=== PATIENT | female | born 1945 | race Caucasian/White ===

== ENCOUNTER 2016-10-18 15:23 | Emergency (ER) | payer MEDICARE, OTHER ==
[2016-10-18 15:42] VITALS: BMI 26.6
[2016-10-18 15:42] LABS: AUTOMATED BASOPHIL 1.2 % (0-2); AUTOMATED EOSINOPHIL 1.7 % (0-5); AUTOMATED LYMPH 21.3 % (17-44); AUTOMATED MONOCYTE 6.2 % (3-10); AUTOMATED NEUTROPHIL 69.6 % (45-76); MPV 7.4 fL (7.4-10.4)
--- NOTE | 2016-10-18 15:51 | EDPRACDOC ---
ED Hypoglycemia - General Information Chief Complaint: Generalized Weakness Information Source: Patient Mode of Arrival:: Ambulance Home Medications: Home Medications Aspirin [Aspirin EC] 81 mg PO DAILY 09/01/13 Atorvastatin Calcium [Lipitor] 40 mg PO DAILY 09/01/13 Lisinopril [Prinivil] 5 mg PO DAILY 09/01/13 Alendronate Sodium [Fosamax] 70 mg PO COREAS 10/18/16 Pump Insulin Humalog 0 units .ROUTE .CONTINUOUS 10/18/16 Allergies/Adverse Reactions: Allergies Allergy/AdvReac Type Severity Reaction Status Date / Time Sulfa (Sulfonamide Allergy Itching Verified 10/18/16 17:00 Antibiotics) - History of Present Illness Onset: PRIMARY CARE MD [place]: Reports: Confused, Shaky Found: Reports: Disoriented Weakness: Reports: Generalized Weakness Eating: Reports: Missed a Meal Relevent History Of: Reports: Diabetes, Insulin Use Frequent: Reports: Neither Modifying Factors: improves with: D50 Associated Signs & Symptoms: Reports: None - Other History Other History: PT SAID THAT SHE HAS AN INSULIN PUMP. SHE ATE BREAKFAST, BUT DID NOT EAT LUNCH. SHE WAS DRIVING HER CAR AND FELT ODD. SHE PULLED OVER AND CALLED EMS. EMS FOUND BS TO BE 45. SHE WAS GIVEN ORAL GLUCOSE AND 1 AMP OF D50. PT FEELS BETTER NOW. PUMP TURNED OFF. - Treatment Prior to ED Arrival Reported Medications/Treatment PRIMARY CARE MD Medications PRIMARY CARE MD (Medication/ glucose 24g x 2 oral Dose/Time) EMS Treatment ALS IV No Comment bs recheck 66 after second dose of glucose ED Past Medical History - Patient Medical History Cardiac History: Reports: Hypertension Psychological History: Denies: Depression Systemic History: Reports: Diabetes. Denies: Cancer Surgical History: Reports: Tonsillectomy/Adnoidectomy - Family Medical History Denies: Cancer (negative for colon ca) - Social Medical History Smoking Status: Never smoker ETOH: None Substance Abuse: None Lives In: Home EDM Review of Systems - Review of Systems ROS Negative Except as Marked: Yes All systems reviewed and were negative except as marked Endocrine: Diabetes - Physical Exam Constitutional: Alert (Awake), No apparent distress Oriented to: Time, Person, Place Last recorded Vital Signs: Last Vital Signs Temp Pulse 74 10/18/16 15:37 Resp 20 10/18/16 15:37 BP 189/74 H 10/18/16 15:37 Pulse Ox 100 10/18/16 15:37 Oxygen Pulse Oxygen Saturation 100 O2 Device Oxygen Flow Rate Fraction of Inspired Oxygen ( FIO2) - HEENT Head: Normal ( normocephalic) Eye Exam: Normal (PERRL, EOMI, Sclera white) Oropharynx: Normal (Pharynx:Moist without exudate,Gums-no swelling) ENT EAC: Normal TMJ: Normal Nose: No Symptoms Reported (septum midline) Neck: Normal (FROM, trachea at midline) - Respiratory/Cardiovascular Respiratory: Normal - CTA (BBS clear to auscultation without adventitious sounds ) Cardiovascular: Normal (RRR without murmur, gallop or rub) - GI Auscultation: Normal (NABS) Palpation: Normal (Soft,No rebound or guarding, non distended) Tenderness: Non tender Ashley's Sign: Negative - Musculoskeletal Back: Normal (Non-Tender) Extremities: Normal (Normal tone, Pulses 2+ No cyanosis or edema, FROM) - Integumentary Skin: Normal, Warm, Dry Lymphatics: Normal (no adenopathy) - Neurologic Memory Impaired: Normal Motor Function: Normal (Normal tone, Pulses 2+ No cyanosis or edema, FROM) Cranial Nerve: Normal (CN II-X11 intact sensation, strength 5/5) Cerebellar: Normal Mood Description: Normal Thought: Coherent Perception: Normal - Results 10/18/16 15:31 10/18/16 15:31 WBC 9.2 xk/uL (3.8-10.8) 10/18/16 15:31 RBC 4.57 xM/uL (4.20-5.40) 10/18/16 15:31 Hgb 13.7 g/dL (12.0-16.0) 10/18/16 15:31 Hct 41.0 % (36-47) 10/18/16 15:31 MCV 90 fL (81-99) 10/18/16 15:31 MCH 30.0 pg (27-32) 10/18/16 15:31 MCHC 33.4 g/dl (33-36) 10/18/16 15:31 RDW 13.5 % (11.5-14.5) 10/18/16 15:31 Plt Count 334 xk/uL (130-400) 10/18/16 15:31 MPV 7.4 fL (7.4-10.4) 10/18/16 15:31 Neut % (Auto) 69.6 % (45-76) 10/18/16 15:31 Lymph % (Auto) 21.3 % (17-44) 10/18/16 15:31 [place] % (Auto) 6.2 % (3-10) 10/18/16 15:31 Eos % (Auto) 1.7 % (0-5) 10/18/16 15:31 Baso % (Auto) 1.2 % (0-2) 10/18/16 15:31 Absolute Neuts (auto) 6.35 xk/uL (1.7-8.2) 10/18/16 15:31 Absolute Lymphs (auto) 1.93 xk/uL (0.65-4.75) 10/18/16 15:31 POC Capillary Glucose 124 MG/DL (70-99) H 10/18/16 15:31 Lab Results 10/18/16 10/18/16 15:31 15:31 WBC 9.2 RBC 4.57 Hgb 13.7 Hct 41.0 MCV 90 MCH 30.0 MCHC 33.4 RDW 13.5 Plt Count 334 MPV 7.4 Neut % (Auto) 69.6 Lymph % (Auto) 21.3 [place] % (Auto) 6.2 Eos % (Auto) 1.7 Baso % (Auto) 1.2 Absolute Neuts (auto) 6.35 Absolute Lymphs (auto) 1.93 POC Capillary Glucose 124 H - EKG EKG #1 EKG Time: 15:44 -: Yes EKG interpreted by me Rate: bpm: 69 [place]: Normal Rhythm: NSR Block: None Hypertrophy: None ST: Normal - Diagnostic Imaging Chest Image interpreted by: Radiologist Diagnostic Imaging Comments: 1. Atherosclerotic aortic arch. Otherwise, no significant abnormalities are observed. - Additional Information PT IS DOING WELL NOW. SHE HAS EATEN AND BS HAS REMAINED ELEVATED. Decision Time to Discharge: 17:57 - Departure Yes I personally saw and evaluated the patient. Disposition: Home Condition: Fair Final Diagnosis: Hypoglycemia, Hypothermia Instructions: Diabetic Hypoglycemia (ED) Education/Counseling Given To: Patient Education/Counseling Given Regarding: Diagnosis, Treatment, Follow Up Additional Instructions: EAT SMALL, FREQUENT MEALS HIGH IN PROTEIN.
[2016-10-18 15:52] LABS: BLOOD UREA NITROGEN 14 MG/DL (7-17); CALCIUM 9.2 MG/DL (8.4-10.2); CALCULATED OSMOLALITY 279 MOs/Kg (270-290); CHLORIDE 102 mEq/L (98-107); GLUCOSE 160 MG/DL (70-99); SODIUM LEVEL 143 mEq/L (137-146); TOTAL PROTEIN 7.5 G/DL (6.3-8.2)
[2016-10-18] MEDS ORDERED: NS 1,000 ML IV ONE (15:53)
--- NOTE | 2016-10-18 15:58 | DIRPT ---
CLINICAL DATA: Hypoglycemia. Diabetes. EXAM: PORTABLE CHEST 1 VIEW COMPARISON: None. FINDINGS: Atherosclerotic aortic arch. Heart size within normal limits. The lungs appear clear. No pleural effusion. IMPRESSION: 1. Atherosclerotic aortic arch. Otherwise, no significant abnormalities are observed. Electronically Signed By: Devin Hendrix M.D. On: 10/18/2016 15:55
[2016-10-18 16:02] LABS: PARTIAL THROMB. TIME 22.9 SEC (22-35)
[2016-10-18 16:11] LABS: LEUKOCYTES/URINE NEG (NEGATIVE); NITRITE/URINE NEG (NEGATIVE); URINE OCCULT BLOOD NEG (NEG/TRACE); WBC/URINE 0-2 (0-5)
[2016-10-18 16:50] VITALS: TEMP 97.3
[2016-10-18 18:15] VITALS: BP 170/77; PULSE 81
== END 2016-10-18 18:14 | disposition home or self-care (01) ==
LOC: ED 15:23
DX: E11.649 Type 2 diabetes mellitus with hypoglycemia without coma (principal); Z96.41 Presence of insulin pump (external) (internal); Z79.4 Long term (current) use of insulin; T68.XXXA Hypothermia, initial encounter; X58.XXXA Exposure to other specified factors, initial encounter; I10 Essential (primary) hypertension; Z79.899 Other long term (current) drug therapy
CPT/HCPCS: 36415; 71010; 80053; 81001; 82962; 84484; 85025; 85610; 85730; 93005; 99284